=== PATIENT | male | born 1975 | race Caucasian/White ===

== ENCOUNTER 2017-09-30 10:17 | Inpatient (IN) | payer OTHER ==
[2017-09-30 10:41] VITALS: BMI 18.3
[2017-09-30] MEDS ORDERED: LOPERAMIDE HCL 2 MG CAPSULE PO PRN (12:32)
[2017-09-30] MEDS ORDERED: MAG HYDROX/AL HYDROX/SIMETH 30 ML UNIT-DOSE CUP PO PRN (12:32)
[2017-09-30] MEDS ORDERED: IBUPROFEN 400 MG TABLET (FP) PO PRN (12:32)
[2017-09-30] MEDS ORDERED: MAGNESIUM CITRATE 300 ML BOTTLE PO PRN (12:32)
[2017-09-30] MEDS ORDERED: P-EPHED 60MG/TRIPROLIDI 2.5MG TABLET PO PRN (12:32)
[2017-09-30] MEDS ORDERED: ACETAMINOPHEN 325 MG TABLET (FP) PO PRN (12:32)
[2017-09-30] MEDS ORDERED: MAGNESIUM HYDROX 2400MG/30ML ORAL SUSPENSION 30 ML CUP PO PRN (12:32)
[2017-09-30] MEDS ORDERED: guaiFENesin/D-METHORPHAN HB 10 ML UNIT-DOSE CUPS PO PRN (12:32)
[2017-09-30] MEDS ORDERED: MENTHOL/PHENOL 1 EACH UD MM PRN (12:32)
[2017-09-30] MEDS ORDERED: ALBUTEROL SO4 18 GM HFA INHALER IH PRN (12:33)
[2017-09-30] MEDS ORDERED: NICOTINE POLACRILEX 4 MG GUM BUC PRN (12:33)
[2017-09-30] MEDS ORDERED: ONDANSETRON *ODT* 4 MG TABLET SL PRN (12:34)
--- NOTE | 2017-09-30 12:40 | HP ---
COWS - Scale Resting Pulse: 0= MD 80 or Below Sweatin= Chills/Flushing Restless Observation: 1= Difficult to Sit Still Pupil Size: 1= Pupils >than Normal Bone or Joint Aches: 1= Mild Discomfort Runny Nose/ Eye Tearin= Nasal Congestion GI Upset > 30mins: 2= Nausea/Diarrhea Tremor Observation: 2= Slight Tremor Visible Yawning Observation: 1= 1-2x During Session Anxiety or Irritability: 2=Irritable/Anxious Goose Flesh Skin: 3=Piloerection COWS Score: 15 CIWA Score - CIWA Score Nausea/Vomitin Muscle Tremors: 3 Anxiety: 3 Agitation: 3 Paroxysmal Sweats: 3 Orientation: 0-Oriented Tacttile Disturbances: 0-None Auditory Disturbances: 0-None Visual Disturbances: 0-None Headache: 1-Very Mild CIWA-Ar Total Score: 16 Admission ROS S - [facility] Chief Complaint: alcohol and opioid withdrawal sx Allergies/Adverse Reactions: Allergies Allergy/AdvReac Type Severity Reaction Status Date / Time No Known Allergies Allergy Unverified 09/30/17 10:57 History of Present Illness: 42 yo m with h/o chronicalcoholis and opioid dependenc [facility] of withdrawal sx. no suicidal ideation no h/o seizures or DTS. PMHX anxieyt, depression, and insomnia, thirsty Exam Limitations: No Limitations - Ebola screening Have you traveled outside of the country in the last 21 days: No Have you had contact with anyone from an Ebola affected area: No Have you been sick,other than usual withdrawal symptoms: No Do you have a fever: No - Review of Systems Constitutional: Chills, Diaphoresis, Night Sweats, Unintentional Wgt. Loss EENT: reports: Tearing, Nose Congestion Respiratory: reports: No Symptoms reported Cardiac: reports: No Symptoms Reported GI: reports: Diarrhea, Nausea, Poor Appetite, Poor Fluid Intake, Vomiting, Indigestion, Abdominal cramping : reports: No Symptoms Reported Musculoskeletal: reports: Back Pain, Joint Pain, Muscle Pain Integumentary: reports: Flushing, Sweating Neuro: reports: Headache, Numbness, Tingling, Tremors Endocrine: reports: Increased Thirst Psychiatric: reports: Judgement Intact, Mood/Affect Appropiate, Orientated x3, Anxious, Depressed Other Systems: Reviewed and Negative Patient History - Patient Medical History Hx Anemia: No Hx Asthma: Yes Hx Chronic Obstructive Pulmonary Disease (COPD): No Hx Cardiac Disorders: No Hx Hypertension: No Hx Hypercholesterolemia: No HX Cerebrovascular Accident: No Hx Seizures: No Hx Diabetes: No Hx Gastrointestinal Disorders: No Hx Genitourinary Disorders: No Hx Sexually Transmitted Disorders: No Hx Renal Disease (ESRD): No Hx Thyroid Disease: No Hx Human Immunodeficiency Virus (HIV): No (NEGATIVE HX) Hx Hepatitis C: No Hx Depression: Yes Hx Suicide Attempt: No Hx Bipolar Disorder: No Hx Schizophrenia: No - Patient Surgical History Past Surgical History: Yes Hx Neurologic Surgery: No Hx Cataract Extraction: No Hx Cardiac Surgery: No Hx Lung Surgery: No Hx Breast Surgery: No Hx Breast Biopsy: No Hx Abdominal Surgery: No Hx Appendectomy: No Hx Cholecystectomy: No Hx Genitourinary Surgery: No Hx Section: No Hx Orthopedic Surgery: Yes (reconstructive sx, [id number]) Anesthesia Reaction: No - PPD History Previous Implant?: Yes Documented Results: Negative w/proof Implanted On Prior R Admission?: Yes Date: 10/16/16 - Smoking Cessation Smoking history: Current every day smoker Have you smoked in the past 12 months: Yes Aproximately how many cigarettes per day: 40 Hx Chewing Tobacco Use: No Initiated information on smoking cessation: Yes 'Breaking Loose' booklet given: 09/30/17 - Substance & Tx. History Hx Alcohol Use: Yes Hx Substance Use: Yes Substance Use Type: Alcohol, Heroin, Opiates Hx Substance Use Treatment: Yes ( [facility]) - Substances Abused Alcohol Route: Oral Frequency: Daily Amount used: beer(1 case-12 oz cans) Age of first use: 15 Date of Last Use: 09/29/17 Cocaine Route: Inhalation Frequency: Daily Amount used: $20 Age of first use: 26 Date of Last Use: 09/29/17 Heroin Route: Inhalation Frequency: Daily Amount used: 10 BAGS Age of first use: 41 Date of Last Use: 09/29/17 Family Disease History - Family Disease History Family Disease History: Diabetes: Father (ALCOHOLISM;PTSD/DEPRESSION), CA: Mother (), Other: Grandparent ([id number]), Father Admission Physical Exam [facility] - Vital Signs Vital Signs: Vital Signs - 24 hr 09/30/17 10:38 Temperature 98.3 F Pulse Rate 78 Respiratory 18 Rate Blood Pressure 100/65 - Physical General Appearance: Yes: Nourished, Appropriately Dressed, Disheveled, Mild Distress, Thin, Tremorous, Irritable, Sweating, Anxious HEENTM: Yes: EOMI, Hearing grossly Normal, Normocephalic, Normal Voice, DONNA, Pharynx Normal, Nasal Congestion, Rhinorrhea Respiratory: Yes: Within Normal Limits, Chest Non-Tender, Lungs Clear, Normal Breath Sounds, No Respiratory Distress, No Accessory Muscle Use Neck: Yes: Within Normal Limits, No masses,lesions,Nodules, Supple, Trachea in good position Breast: Yes: Breast Exam Deferred Cardiology: Yes: Within Normal Limits, Regular Rhythm, Regular Rate, S1, S2 Abdominal: Yes: Within Normal Limits, Normal Bowel Sounds, Non Tender, Flat, Increased Bowel Sounds Genitourinary: Yes: Within Normal Limits Back: Yes: Normal Inspection, Muscle Spasm Musculoskeletal: Yes: full range of Motion, Gait Steady, Pelvis Stable, Back pain, Joint Stiffness, Muscle Pain Extremities: Yes: Normal Capillary Refill, Normal Range of Motion, Non-Tender, Tremors Neurological: Yes: 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 II-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 NML intact, Fully Oriented, Alert, Motor Strength 5/5, Normal Response Integumentary: Yes: Normal Color, Warm, Diaphoresis, Moist Lymphatic: Yes: Within Normal Limits - Addiitonal Findings: withdrawal sx - Diagnostic (1) Alcohol dependence with uncomplicated withdrawal Current Visit: Yes Status: Acute (2) Nicotine dependence Current Visit: Yes Status: Acute (3) Drug-induced mood disorder Current Visit: No Status: Acute (4) Opioid dependence with withdrawal Current Visit: No Status: Acute (5) PTSD (post-traumatic stress disorder) Current Visit: No Status: Acute (6) GERD (gastroesophageal reflux disease) Current Visit: No Status: Chronic Qualifiers: Comment: NO CURRENT MEDS (7) History of asthma Current Visit: No Status: Chronic Cleared for Admission [facility] - Detox or Rehab [facility] Level of Care: Medically Managed Detox Regimen/Protocol: Methadone/Librium [facility] Breath Alcohol Content Breath Alcohol Content: 0 Urine Drug Screen - Results Drug Screen Negative: No Urine Drug Screen Results: JANE-Cocaine, OPI-Opiates, BZO-Benzodiazepines, MTD- Methadone, OXY-Oxycodone
[2017-09-30] MEDS ORDERED: ONDANSETRON *ODT* 4 MG TABLET SL ONE (13:05)
[2017-09-30] MEDS ORDERED: METHADONE HCL 10 MG TABLET (FOR DETOX USE ONLY) PO ONE ×2 (13:05→23:00)
[2017-09-30] MEDS: chlordiazePOXIDE HCL 25 MG CAPSULE PO PRN (13:56)
[2017-09-30] MEDS: NICOTINE 21 MG/24 HOURS TOPICAL PATCH TD SCH (13:57)
[2017-09-30 17:02] LABS: URINE APPEARANCE CLEAR; URINE BILIRUBIN NEGATIVE (NEGATIVE); URINE BLOOD NEGATIVE (NEGATIVE); URINE COLOR YELLOW; URINE GLUCOSE (UA) NEGATIVE (NEGATIVE); URINE KETONE TRACE (NEGATIVE); URINE LEUK ESTERASE NEGATIVE (NEGATIVE); URINE NITRITE NEGATIVE (NEGATIVE); URINE PROTEIN NEGATIVE (NEGATIVE); URINE UROBILINOGEN NEGATIVE mg/dL (0.2-1.0)
[2017-09-30] MEDS: chlordiazePOXIDE HCL 25 MG CAPSULE PO SCH ×2 (17:34→22:31)
[2017-09-30] MEDS: THIAMINE HCL 100 MG TABLET (FP) PO SCH (22:31)
[2017-10-01] MEDS: chlordiazePOXIDE HCL 25 MG CAPSULE PO SCH ×2 (05:05→10:29)
[2017-10-01] MEDS ORDERED: METHADONE HCL 10 MG TABLET (FOR DETOX USE ONLY) PO SCH (10:00)
[2017-10-01 10:07] LABS: HEMATOCRIT 41.9 % (35.4-49); MCH 32.4 pg (25.7-33.7); MCHC 33.5 g/dl (32.0-35.9); MEAN CELL VOLUME 96.7 fl (80-96); MEAN PLT VOLUME 7.2 fl (7.5-11.1); PLATELET COUNT 314 K/MM3 (134-434); RBC 4.33 M/mm3 (4.00-5.60); RDW 13.6 % (11.9-15.9); WHITE BLOOD COUNT 14.1 K/mm3 (4.0-10.0)
[2017-10-01 10:09] LABS: CHLORIDE 102 mmol/L (98-107); POTASSIUM 3.9 mmol/L (3.5-5.1); SODIUM 138 mmol/L (136-145)
[2017-10-01] MEDS: PRENATAL VITAMINS W/ FOLIC ACID TABLET (FP) PO SCH (10:29)
[2017-10-01] MEDS: NICOTINE 21 MG/24 HOURS TOPICAL PATCH TD SCH (10:29)
[2017-10-01 10:33] LABS: ALBUMIN 4.3 g/dl (3.4-5.0); ALK PHOS 46 U/L (45-117); ANION GAP 9 (8-16); BILIRUBIN,TOTAL 1.5 mg/dL (0.2-1.0); BLOOD UREA NITROGEN 37 mg/dL (7-18); CALCIUM 8.5 mg/dL (8.5-10.1); CO2 27 mmol/L (21-32); CREATININE 1.3 mg/dL (0.7-1.3); GLUCOSE,RANDOM 86 mg/dL (74-106); SGOT/AST 13 U/L (15-37); SGPT/ALT 14 U/L (12-78)
[2017-10-01] MEDS: chlordiazePOXIDE HCL 25 MG CAPSULE PO PRN (12:54)
--- NOTE | 2017-10-01 15:01 | CONSULT ---
[facility] Psychiatric Consult - Data Date of interview: 10/01/17 Admission source: [facility]
--- NOTE | 2017-10-01 16:36 | PN ---
[facility] CIWA - CIWA Score Nausea/Vomitin Muscle Tremors: 3 Anxiety: 3 Agitation: 3 Paroxysmal Sweats: 2 Orientation: 0-Oriented Tacttile Disturbances: 0-None Auditory Disturbances: 0-None Visual Disturbances: 0-None Headache: 0-None Present CIWA-Ar Total Score: 14 S COWS - Scale Resting Pulse: 1= [place] 81-100 Sweatin=Flushed/Facial Moisture Restless Observation: 3= Extraneous Movement Pupil Size: 0= Normal to Room Light Bone or Joint Aches: 1= Mild Discomfort Runny Nose/ Eye Tearin= Nasal Congestion GI Upset > 30mins: 1= Stomach Cramp Tremor Observation of Outstretched Hands: 2= Slight Tremor Visible Yawning Observation: 0= None Anxiety or Irritability: 2=Irritable/Anxious Goose Flesh Skin: 0=Smooth Skin COWS Score: 13 S Progress Note (SOAP) Subjective: Anxious sleep disturbance States that librium not helping him, requesting valium protocol Objective: 10/01/17 16:33 A & O x 3 Anxious Vital Signs Temperature 97.0 F L 10/01/17 14:52 Pulse Rate 86 10/01/17 14:52 Respiratory Rate 18 10/01/17 14:52 Blood Pressure 118/60 10/01/17 14:52 O2 Sat by Pulse Oximetry (%) Laboratory Last Values WBC 14.1 K/mm3 (4.0-10.0) H D 10/01/17 06:20 RBC 4.33 M/mm3 (4.00-5.60) 10/01/17 06:20 Hgb 14.0 GM/dL (11.7-16.9) 10/01/17 06:20 Hct 41.9 % (35.4-49) 10/01/17 06:20 MCV 96.7 fl (80-96) H 10/01/17 06:20 MCH 32.4 pg (25.7-33.7) 10/01/17 06:20 MCHC 33.5 g/dl (32.0-35.9) 10/01/17 06:20 RDW 13.6 % (11.9-15.9) 10/01/17 06:20 Plt Count 314 K/MM3 (134-434) 10/01/17 06:20 MPV 7.2 fl (7.5-11.1) L 10/01/17 06:20 Sodium 138 mmol/L (136-145) 10/01/17 06:20 Potassium 3.9 mmol/L (3.5-5.1) 10/01/17 06:20 Chloride 102 mmol/L (98-107) 10/01/17 06:20 Carbon Dioxide 27 mmol/L (21-32) 10/01/17 06:20 Anion Gap 9 (8-16) 10/01/17 06:20 BUN 37 mg/dL (7-18) H D 10/01/17 06:20 Creatinine 1.3 mg/dL (0.7-1.3) D 10/01/17 06:20 Creat Clearance w eGFR > 60 (>60) 10/01/17 06:20 Random Glucose 86 mg/dL (74-106) D 10/01/17 06:20 Calcium 8.5 mg/dL (8.5-10.1) 10/01/17 06:20 Total Bilirubin 1.5 mg/dL (0.2-1.0) H D 10/01/17 06:20 AST 13 U/L (15-37) L D 10/01/17 06:20 ALT 14 U/L (12-78) D 10/01/17 06:20 Alkaline Phosphatase 46 U/L (45-117) 10/01/17 06:20 Total Protein 7.0 g/dl (6.4-8.2) 10/01/17 06:20 Albumin 4.3 g/dl (3.4-5.0) 10/01/17 06:20 Urine Color Yellow 09/30/17 14:45 Urine Appearance Clear 09/30/17 14:45 Urine pH 5.0 (5.0-8.0) 09/30/17 14:45 Ur Specific [place] 1.032 (1.001-1.035) 09/30/17 14:45 Urine Protein Negative (NEGATIVE) 09/30/17 14:45 Urine Glucose (UA) Negative (NEGATIVE) 09/30/17 14:45 Urine Ketones Trace (NEGATIVE) H 09/30/17 14:45 Urine Blood Negative (NEGATIVE) 09/30/17 14:45 Urine Nitrite Negative (NEGATIVE) 09/30/17 14:45 Urine Bilirubin Negative (NEGATIVE) 09/30/17 14:45 Urine Urobilinogen Negative mg/dL (0.2-1.0) 09/30/17 14:45 Ur Leukocyte Esterase Negative (NEGATIVE) 09/30/17 14:45 RPR Titer Nonreactive (NONREACTIVE) 10/01/17 06:20 labs noted Assessment: 10/01/17 16:34 withdrawal sx Plan: continue detox protocol changed to valium
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
[2017-10-01] MEDS ORDERED: chlordiazePOXIDE HCL 25 MG CAPSULE PO SCH (17:00)
[2017-10-01] MEDS: diazePAM 5 MG TABLET PO PRN (17:19)
[2017-10-01] MEDS: THIAMINE HCL 100 MG TABLET (FP) PO SCH (21:28)
[2017-10-01] MEDS: diazePAM 5 MG TABLET PO SCH (21:28)
[2017-10-01] MEDS ORDERED: QUEtiapine FUMARATE 50 MG TABLET PO SCH (22:00)
[2017-10-02] MEDS: diazePAM 5 MG TABLET PO PRN ×5 (00:35→21:10)
[2017-10-02] MEDS: diazePAM 5 MG TABLET PO SCH ×3 (05:26→21:12)
[2017-10-02] MEDS: PRENATAL VITAMINS W/ FOLIC ACID TABLET (FP) PO SCH (10:23)
[2017-10-02] MEDS: METHADONE HCL 5 MG TABLET (FOR DETOX USE ONLY) PO SCH (10:23)
[2017-10-02] MEDS: NICOTINE 21 MG/24 HOURS TOPICAL PATCH TD SCH (10:24)
--- NOTE | 2017-10-02 14:51 | PN ---
[facility] CIWA - CIWA Score Nausea/Vomitin-Mild Nausea/No Vomiting Muscle Tremors: 3 Anxiety: 3 Agitation: 3 Paroxysmal Sweats: 1-Minimal Palms Moist Orientation: 0-Oriented Tacttile Disturbances: 0-None Auditory Disturbances: 0-None Visual Disturbances: 0-None Headache: 0-None Present CIWA-Ar Total Score: 11 S COWS - Scale Resting Pulse: 1= [place] 81-100 Sweatin= Chills/Flushing Restless Observation: 3= Extraneous Movement Pupil Size: 0= Normal to Room Light Bone or Joint Aches: 1= Mild Discomfort Runny Nose/ Eye Tearin= Nasal Congestion GI Upset > 30mins: 1= Stomach Cramp Tremor Observation of Outstretched Hands: 2= Slight Tremor Visible Yawning Observation: 0= None Anxiety or Irritability: 2=Irritable/Anxious Goose Flesh Skin: 0=Smooth Skin COWS Score: 12 S Progress Note (SOAP) Subjective: joint aches sweat tremor anxiety stuffy nose restlessness Objective: 10/02/17 15:48 Vital Signs Temperature 97.0 F L 10/02/17 14:20 Pulse Rate 107 H 10/02/17 14:20 Respiratory Rate 20 10/02/17 14:20 Blood Pressure 107/62 10/02/17 14:20 O2 Sat by Pulse Oximetry (%) Laboratory Last Values WBC 14.1 K/mm3 (4.0-10.0) H D 10/01/17 06:20 RBC 4.33 M/mm3 (4.00-5.60) 10/01/17 06:20 Hgb 14.0 GM/dL (11.7-16.9) 10/01/17 06:20 Hct 41.9 % (35.4-49) 10/01/17 06:20 MCV 96.7 fl (80-96) H 10/01/17 06:20 MCH 32.4 pg (25.7-33.7) 10/01/17 06:20 MCHC 33.5 g/dl (32.0-35.9) 10/01/17 06:20 RDW 13.6 % (11.9-15.9) 10/01/17 06:20 Plt Count 314 K/MM3 (134-434) 10/01/17 06:20 MPV 7.2 fl (7.5-11.1) L 10/01/17 06:20 Sodium 138 mmol/L (136-145) 10/01/17 06:20 Potassium 3.9 mmol/L (3.5-5.1) 10/01/17 06:20 Chloride 102 mmol/L (98-107) 10/01/17 06:20 Carbon Dioxide 27 mmol/L (21-32) 10/01/17 06:20 Anion Gap 9 (8-16) 10/01/17 06:20 BUN 37 mg/dL (7-18) H D 10/01/17 06:20 Creatinine 1.3 mg/dL (0.7-1.3) D 10/01/17 06:20 Creat Clearance w eGFR > 60 (>60) 10/01/17 06:20 Random Glucose 86 mg/dL (74-106) D 10/01/17 06:20 Calcium 8.5 mg/dL (8.5-10.1) 10/01/17 06:20 Total Bilirubin 1.5 mg/dL (0.2-1.0) H D 10/01/17 06:20 AST 13 U/L (15-37) L D 10/01/17 06:20 ALT 14 U/L (12-78) D 10/01/17 06:20 Alkaline Phosphatase 46 U/L (45-117) 10/01/17 06:20 Total Protein 7.0 g/dl (6.4-8.2) 10/01/17 06:20 Albumin 4.3 g/dl (3.4-5.0) 10/01/17 06:20 Urine Color Yellow 09/30/17 14:45 Urine Appearance Clear 09/30/17 14:45 Urine pH 5.0 (5.0-8.0) 09/30/17 14:45 Ur Specific [place] 1.032 (1.001-1.035) 09/30/17 14:45 Urine Protein Negative (NEGATIVE) 09/30/17 14:45 Urine Glucose (UA) Negative (NEGATIVE) 09/30/17 14:45 Urine Ketones Trace (NEGATIVE) H 09/30/17 14:45 Urine Blood Negative (NEGATIVE) 09/30/17 14:45 Urine Nitrite Negative (NEGATIVE) 09/30/17 14:45 Urine Bilirubin Negative (NEGATIVE) 09/30/17 14:45 Urine Urobilinogen Negative mg/dL (0.2-1.0) 09/30/17 14:45 Ur Leukocyte Esterase Negative (NEGATIVE) 09/30/17 14:45 RPR Titer Nonreactive (NONREACTIVE) 10/01/17 06:20 lab noted Assessment: 10/02/17 15:49 withdrawal sx Plan: continue detox
--- NOTE | 2017-10-02 15:16 | PN ---
Psychiatric Progress Note Vital Signs: Vital Signs Period Temp Pulse Resp BP Sys/Mancuso Pulse Ox Last 24 Hr 96.6 F-98.4 F 80-107 18-20 107-112/62-76 Date of Session: 10/02/17 Chief Complaint:: Insomnia HPI: Patient was admitted on 09/30/17 for inpatient detoxification for alcohol, heroin and cocaine Current Medications: Active Medications Generic Name Dose Route Start Last Admin Trade Name Freq PRN Reason Stop Dose Admin Acetaminophen 650 mg 09/30/17 12:32 Tylenol - PO Q4H PRN FEVER Al Hydroxide/Mg Hydroxide 30 ml 09/30/17 12:32 Mylanta Oral Suspension - PO Q6H PRN DYSPEPSIA Albuterol Sulfate 2 puff 09/30/17 12:33 Ventolin Hfa Inhaler - IH Q4H PRN ASTHMA Diazepam 10 mg 10/01/17 16:21 10/02/17 12:41 Valium - PO 10/04/17 16:20 10 mg Q4H PRN Administration WITHDRAWAL(CONT SUBST) Diazepam 5 mg 10/01/17 22:00 10/02/17 14:11 Valium - PO 10/02/17 22:01 5 mg TID SERG Administration Diazepam 5 mg 10/03/17 10:00 Valium - PO 10/04/17 22:01 BID SERG Diazepam 5 mg 10/05/17 10:00 Valium - PO 10/05/17 10:01 DAILY SERG Eucalyptus/Menthol/Phenol/Sorbitol 1 each 09/30/17 12:32 Cepastat Lozenge - MM Q4H PRN SORE THROAT Guaifenesin 10 ml 09/30/17 12:32 Robitussin Dm - PO Q6H PRN COUGH Ibuprofen 400 mg 09/30/17 12:32 Motrin - PO Q6H PRN PAIN LEVEL 4-6 Loperamide HCl 4 mg 09/30/17 12:32 Imodium - PO Q6H PRN DIARRHEA Magnesium Citrate 300 ml 09/30/17 12:32 Citroma - PO Q48H PRN CONSTIPATION Magnesium Hydroxide 30 ml 09/30/17 12:32 Milk Of Magnesia - PO DAILY PRN CONSTIPATION Methadone HCl 15 mg 10/02/17 10:00 10/02/17 10:23 Dolophine - PO 10/03/17 10:01 15 mg DAILY SERG Administration Methadone HCl 5 mg 10/05/17 06:00 Dolophine - PO 10/05/17 06:01 DAILY@0600 SERG Methadone HCl 10 mg 10/04/17 10:00 Dolophine - PO 10/04/17 10:01 DAILY SERG Nicotine 21 mg 09/30/17 13:05 10/02/17 10:24 Nicoderm Patch - TD 21 mg DAILY SERG Administration Nicotine Polacrilex 4 mg 09/30/17 12:33 Nicorette Gum - BUC Q2H PRN NICOTINE REPLACEMENT RX Ondansetron HCl 4 mg 09/30/17 12:34 Zofran Odt - SL Q6H PRN NAUSEA AND/OR VOMITING Multivit/Folic Acid/Iron 1 tab 10/01/17 10:00 10/02/17 10:23 Vitamins (Sjr) - PO 1 tab DAILY SERG Administration Pseudoephedrine/Triprolidine 1 combo 09/30/17 12:32 Actifed - PO TID PRN NASAL CONGESTION Quetiapine Fumarate 100 mg 10/02/17 22:00 Seroquel - PO HS SERG Thiamine HCl 100 mg 09/30/17 22:00 10/01/17 21:28 Vitamin B1 - PO 100 mg HS SERG Administration Current Side Effect: No Lab tests ordered: Yes Lab tests reviewed: Yes Provider note:: Reports experiencing difficulty to sleep. Told appeals writer that he has been sleeping poorly despite Seroquel 50 mg taken at bedtime last night. Requests that medication dosage be increased Total face to face time:: 15 Mental Status Exam - Mental Status Exam Alert and Oriented to: Time, Place, Person Cognitive Function: Fair Patient Appearance: Well Groomed Mood: Hopeful, Euthymic Affect: Appropriate Patient Behavior: Cooperative Speech Pattern: Clear Voice Loudness: Normal Thought Process: Intact, Goal Oriented Thought Disorder: Not Present Hallucinations: Denies Suicidal Ideation: Denies Homicidal Ideation: Denies Insight/Judgement: Poor Sleep: Poorly Appetite: Good Muscle strength/Tone: Normal Gait/Station: Normal Psychiatric Treatment Plan - Problem List (1) PTSD (post-traumatic stress disorder) Current Visit: No Comment: Declines antidepressant medications. (2) Drug-induced mood disorder Current Visit: No (3) Substance-induced sleep disorder Current Visit: Yes (4) Alcohol dependence with uncomplicated withdrawal Current Visit: Yes (5) Opioid dependence with withdrawal Current Visit: No (6) Cocaine dependence Current Visit: Yes (7) Nicotine dependence Current Visit: Yes (8) GERD (gastroesophageal reflux disease) Current Visit: No Qualifiers: Comment: NO CURRENT MEDS (9) History of asthma Current Visit: No Initial treatment plan: 1) Discontinue Seroquel 50 mg po HS. 2) Start Seroquel 100 mg po HS. 3) Continue inpatient detoxification
[2017-10-02] MEDS ORDERED: chlordiazePOXIDE 5 MG CAPSULE PO SCH (17:00)
[2017-10-02] MEDS: THIAMINE HCL 100 MG TABLET (FP) PO SCH (21:10)
[2017-10-02] MEDS ORDERED: QUEtiapine FUMARATE 100 MG TABLET (FP) PO SCH (22:00)
[2017-10-03] MEDS: diazePAM 5 MG TABLET PO PRN ×4 (02:07→17:08)
[2017-10-03] MEDS ORDERED: diazePAM 5 MG TABLET PO SCH (10:00)
[2017-10-03] MEDS: PRENATAL VITAMINS W/ FOLIC ACID TABLET (FP) PO SCH (10:27)
[2017-10-03] MEDS: METHADONE HCL 5 MG TABLET (FOR DETOX USE ONLY) PO SCH (10:27)
[2017-10-03] MEDS: NICOTINE 21 MG/24 HOURS TOPICAL PATCH TD SCH (10:27)
--- NOTE | 2017-10-03 10:39 | PN ---
S Progress Note (SOAP) Subjective: patient states that the valium is not working for him, patient wants to return to [facility], health teaching on risks of frequent exchanging patient demands to know "which one is the strongest" roommate of the patient wants to stay outside the room feel safer Objective: 10/03/17 10:39 Vital Signs Temperature 97.2 F L 10/03/17 06:20 Pulse Rate 67 10/03/17 06:20 Respiratory Rate 18 10/03/17 06:20 Blood Pressure 90/55 10/03/17 06:20 O2 Sat by Pulse Oximetry (%) Laboratory Last Values WBC 14.1 K/mm3 (4.0-10.0) H D 10/01/17 06:20 RBC 4.33 M/mm3 (4.00-5.60) 10/01/17 06:20 Hgb 14.0 GM/dL (11.7-16.9) 10/01/17 06:20 Hct 41.9 % (35.4-49) 10/01/17 06:20 MCV 96.7 fl (80-96) H 10/01/17 06:20 MCH 32.4 pg (25.7-33.7) 10/01/17 06:20 MCHC 33.5 g/dl (32.0-35.9) 10/01/17 06:20 RDW 13.6 % (11.9-15.9) 10/01/17 06:20 Plt Count 314 K/MM3 (134-434) 10/01/17 06:20 MPV 7.2 fl (7.5-11.1) L 10/01/17 06:20 Sodium 138 mmol/L (136-145) 10/01/17 06:20 Potassium 3.9 mmol/L (3.5-5.1) 10/01/17 06:20 Chloride 102 mmol/L (98-107) 10/01/17 06:20 Carbon Dioxide 27 mmol/L (21-32) 10/01/17 06:20 Anion Gap 9 (8-16) 10/01/17 06:20 BUN 37 mg/dL (7-18) H D 10/01/17 06:20 Creatinine 1.3 mg/dL (0.7-1.3) D 10/01/17 06:20 Creat Clearance w eGFR > 60 (>60) 10/01/17 06:20 Random Glucose 86 mg/dL (74-106) D 10/01/17 06:20 Calcium 8.5 mg/dL (8.5-10.1) 10/01/17 06:20 Total Bilirubin 1.5 mg/dL (0.2-1.0) H D 10/01/17 06:20 AST 13 U/L (15-37) L D 10/01/17 06:20 ALT 14 U/L (12-78) D 10/01/17 06:20 Alkaline Phosphatase 46 U/L (45-117) 10/01/17 06:20 Total Protein 7.0 g/dl (6.4-8.2) 10/01/17 06:20 Albumin 4.3 g/dl (3.4-5.0) 10/01/17 06:20 Urine Color Yellow 09/30/17 14:45 Urine Appearance Clear 09/30/17 14:45 Urine pH 5.0 (5.0-8.0) 09/30/17 14:45 Ur Specific [place] 1.032 (1.001-1.035) 09/30/17 14:45 Urine Protein Negative (NEGATIVE) 09/30/17 14:45 Urine Glucose (UA) Negative (NEGATIVE) 09/30/17 14:45 Urine Ketones Trace (NEGATIVE) H 09/30/17 14:45 Urine Blood Negative (NEGATIVE) 09/30/17 14:45 Urine Nitrite Negative (NEGATIVE) 09/30/17 14:45 Urine Bilirubin Negative (NEGATIVE) 09/30/17 14:45 Urine Urobilinogen Negative mg/dL (0.2-1.0) 09/30/17 14:45 Ur Leukocyte Esterase Negative (NEGATIVE) 09/30/17 14:45 RPR Titer Nonreactive (NONREACTIVE) 10/01/17 06:20 lab noted Assessment: 10/03/17 10:41 withdrawal sx 10/03/17 10:55 Plan: continue detox patient has been seen by psychiatrist
--- NOTE | 2017-10-03 11:38 | PN ---
Psychiatric Progress Note Vital Signs: Vital Signs Period Temp Pulse Resp BP Sys/Mancuso Pulse Ox Last 24 Hr 97.0 F-98.4 F 67-107 16-20 90-112/55-71 Date of Session: 10/03/17 Chief Complaint:: " I can't sleep." HPI: Pt. admittted to [facility] for alcohol, opiate and cocaine dependence. ROS: Unremarkable. Current Medications: Active Medications Generic Name Dose Route Start Last Admin Trade Name Ally PRN Reason Stop Dose Admin Acetaminophen 650 mg 09/30/17 12:32 Tylenol - PO Q4H PRN FEVER Al Hydroxide/Mg Hydroxide 30 ml 09/30/17 12:32 Mylanta Oral Suspension - PO Q6H PRN DYSPEPSIA Albuterol Sulfate 2 puff 09/30/17 12:33 Ventolin Hfa Inhaler - IH Q4H PRN ASTHMA Diazepam 10 mg 10/01/17 16:21 10/03/17 06:14 Valium - PO 10/04/17 16:20 10 mg Q4H PRN Administration WITHDRAWAL(CONT SUBST) Diazepam 5 mg 10/03/17 10:00 10/03/17 10:27 Valium - PO 10/04/17 22:01 5 mg BID ESRG Administration Diazepam 5 mg 10/05/17 10:00 Valium - PO 10/05/17 10:01 DAILY [facility] Eucalyptus/Menthol/Phenol/Sorbitol 1 each 09/30/17 12:32 Cepastat Lozenge - MM Q4H PRN SORE THROAT Guaifenesin 10 ml 09/30/17 12:32 Robitussin Dm - PO Q6H PRN COUGH Ibuprofen 400 mg 09/30/17 12:32 Motrin - PO Q6H PRN PAIN LEVEL 4-6 Loperamide HCl 4 mg 09/30/17 12:32 Imodium - PO Q6H PRN DIARRHEA Magnesium Citrate 300 ml 09/30/17 12:32 Citroma - PO Q48H PRN CONSTIPATION Magnesium Hydroxide 30 ml 09/30/17 12:32 Milk Of Magnesia - PO DAILY PRN CONSTIPATION Methadone HCl 5 mg 10/05/17 06:00 Dolophine - PO 10/05/17 06:01 DAILY@0600 SERG Methadone HCl 10 mg 10/04/17 10:00 Dolophine - PO 10/04/17 10:01 DAILY SERG Nicotine 21 mg 09/30/17 13:05 10/03/17 10:27 Nicoderm Patch - TD 21 mg DAILY SERG Administration Nicotine Polacrilex 4 mg 09/30/17 12:33 Nicorette Gum - BUC Q2H PRN NICOTINE REPLACEMENT RX Ondansetron HCl 4 mg 09/30/17 12:34 Zofran Odt - SL Q6H PRN NAUSEA AND/OR VOMITING Multivit/Folic Acid/Iron 1 tab 10/01/17 10:00 10/03/17 10:27 Vitamins (Sjr) - PO 1 tab DAILY SERG Administration Pseudoephedrine/Triprolidine 1 combo 09/30/17 12:32 Actifed - PO TID PRN NASAL CONGESTION Quetiapine Fumarate 100 mg 10/02/17 22:00 10/02/17 21:10 Seroquel - PO 100 mg HS SERG Administration Thiamine HCl 100 mg 09/30/17 22:00 10/02/17 21:10 Vitamin B1 - PO 100 mg HS SERG Administration Zolpidem Tartrate 10 mg 10/03/17 22:00 Ambien - PO HS PRN INSOMNIA Medication(s) Change(s): Yes. Will add benadryl 100mg qhs for insomnia. Provider note:: Manager Integr[employer] met with patient concerning psychiatric reconsultation. and Dr. Kingston's note read and appreciated.Pt. continues to report poor sleep. Reports sleeping approximately 1-2 hours last night and no adequate sleep in 10 days. States the seroquel 100mg dose did not improve his sleep. Alternative medications offered. Pt. refused trazodone and ambien. Pt. willing to accept benadryl but reports benadryl 50mg as ineffective. Will ordered Benadryl 100mg qhs for insomnia. Benefits and side effects discussed. Sleep hygiene discussed. Verbal consent given. Will continue to monitor. Total face to face time:: 25 Mental Status Exam - Mental Status Exam Alert and Oriented to: Time, Place, Person Cognitive Function: Good Patient Appearance: Well Groomed Mood: Euthymic Affect: Mood Congruent Patient Behavior: Appropriate, Cooperative Speech Pattern: Appropriate Voice Loudness: Normal Thought Process: Goal Oriented Thought Disorder: Not Present Hallucinations: Denies Suicidal Ideation: Denies Homicidal Ideation: Denies Insight/Judgement: Poor Sleep: Poorly Appetite: Fair Muscle strength/Tone: Normal Gait/Station: Normal Psychiatric Treatment Plan - Problem List (1) Alcohol dependence with uncomplicated withdrawal Current Visit: Yes (2) Cocaine dependence Current Visit: Yes (3) Insomnia Current Visit: Yes (4) Nicotine dependence Current Visit: Yes (5) Drug-induced mood disorder Current Visit: Yes (6) Opioid dependence with withdrawal Current Visit: Yes (7) PTSD (post-traumatic stress disorder) Current Visit: No Comment: Declines antidepressant medications.
[2017-10-03] MEDS ORDERED: hydrOXYzine PAMOATE 50 MG CAPSULE (FP) PO ONE (16:15)
[2017-10-03] MEDS ORDERED: chlordiazePOXIDE HCL 10 MG CAPSULE PO SCH (17:00)
[2017-10-03 19:11] VITALS: BP 128/59; PULSE 111; TEMP 97.3
[2017-10-03] MEDS ORDERED: diphenhydrAMINE HCL 50 MG CAPSULE PO PRN (22:00)
[2017-10-03] MEDS ORDERED: ZOLPIDEM TARTRATE 5 MG TABLET PO PRN (22:00)
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
[2017-10-04] MEDS ORDERED: METHADONE HCL 10 MG TABLET (FOR DETOX USE ONLY) PO SCH (10:00)
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
[2017-10-05] MEDS ORDERED: METHADONE HCL 5 MG TABLET (FOR DETOX USE ONLY) PO SCH (06:00)
[2017-10-05] MEDS ORDERED: diazePAM 5 MG TABLET PO SCH (10:00)
== END 2017-10-03 18:20 | disposition home or self-care (01) | DRG 773 ==
LOC: YASAS 10:17 → Y6N 12:30
PROVIDERS: ADMIT Internal Medicine; ATTEND Internal Medicine
PROC: HZ2ZZZZ Detoxification Services for Substance Abuse Treatment (ICD-10-PCS; principal; 2017-09-30)
DX: F11.23 Opioid dependence with withdrawal (principal); F10.230 Alcohol dependence with withdrawal, uncomplicated; F19.20 Other psychoactive substance dependence, uncomplicated; F17.210 Nicotine dependence, cigarettes, uncomplicated; F19.24 Other psychoactive substance dependence with psychoactive substance-induced mood disorder; F43.10 Post-traumatic stress disorder, unspecified; G47.00 Insomnia, unspecified; K21.9 Gastro-esophageal reflux disease without esophagitis; F91.9 Conduct disorder, unspecified
CPT/HCPCS: 36415; 80053; 81003; 85027; 86593; 93005; 93010